=== PATIENT | female | born 1985 | race Asian ===

== ENCOUNTER 2017-09-05 00:08 | Outpatient (CLI) | payer BC ==
[~2017-09-05] VITALS: Ht 157.5 cm; Wt 66.8 kg
[2017-09-05 00:35] VITALS: BP 102/68; PULSE 107; TEMP 98.3
[2017-09-05] MEDS ORDERED: PRENATAL MVI (00:46)
[2017-09-05] MEDS ORDERED: ZANTAC 7575 MG PO (00:47)
[2017-09-05 01:30] VITALS: BP 100/66; PULSE 80
[2017-09-05 02:27] VITALS: BP 100/66; PULSE 80
== END 2017-09-05 02:50 | disposition home or self-care (01) ==
LOC: LDRO 00:08
DX: O62.9 Abnormality of forces of labor, unspecified (principal); Z3A.40 40 weeks gestation of pregnancy

== ENCOUNTER 2017-09-06 11:21 | Inpatient (IN) | payer OTHER, BC ==
[~2017-09-06] VITALS: Ht 157.5 cm; Wt 67.7 kg
[2017-09-06] VITALS (27 sets, daily range): BP systolic 89–119; BP diastolic 50–81; PULSE 64–122; TEMP 97.6–97.8
[~2017-09-06 11:21] MED LIST: PRENATAL MVI; ZANTAC 7575 MG PO
[2017-09-06 12:09] LABS: BASO % 0.4 % (0.0-2.0); EOS % 0.2 % (0-4.0); GRAN # 8.7 (1.4-6.5); GRAN % 78.8 % (42.2-75.2); HEMATOCRIT 41.6 % (37.0-47.0); HEMOGLOBIN 14.2 g/dl (12.5-16.0); LYMPH # 1.8 (1.2-3.4); LYMPH % 16.7 % (20.0-51.0); MEAN CELL VOLUME 89 fl (80.0-100.0); MEAN CORPUSCULAR HEMOGLOBIN 30 pg (27.0-31.0); MEAN CORPUSCULAR HGB CONC 34 g/dl (33.0-37.0); MEAN PLATELET VOLUME 10.1 fl (7.4-10.4); MONO # 0.4 (0.1-0.6); MONO % 3.4 % (1.7-9.3); PLATELET COUNT 242 K/mm3 (130-400); RED BLOOD COUNT 4.68 M/mm3 (4.10-5.30)
[2017-09-07 00:15] VITALS: BP 86/46; PULSE 109; TEMP 98.6
[2017-09-07 04:27] VITALS: BP 87/57; PULSE 92; TEMP 98.2
[2017-09-07 08:29] VITALS: BP 89/62; PULSE 96; TEMP 98.3
[2017-09-07] MEDS ORDERED: IBU800 M1 PO (08:39)
[2017-09-07 16:00] VITALS: BP 89/57; PULSE 88; TEMP 98
[2017-09-07 19:30] VITALS: BP 109/70; PULSE 79; TEMP 98
[2017-09-08 07:30] VITALS: BP 107/74; PULSE 86; TEMP 98
== END 2017-09-08 10:50 | disposition home or self-care (01) | DRG 989 ==
LOC: LDRO 11:21 → LDR 11:45 → OB 20:00
PROVIDERS: Student in an Organized Health Care Education/Training Program
PROC: 10D07Z6 Extraction of Products of Conception, Vacuum, Via Natural or Artificial Opening (ICD-10-PCS; principal; 2017-09-06)
PROC: 0UQK7ZZ Repair Hymen, Via Natural or Artificial Opening (ICD-10-PCS; 2017-09-06)
PROC: 0KQM0ZZ Repair Perineum Muscle, Open Approach (ICD-10-PCS; 2017-09-06)
DX: O48.0 Post-term pregnancy (principal); O76 Abnormality in fetal heart rate and rhythm complicating labor and delivery; O77.0 Labor and delivery complicated by meconium in amniotic fluid; O70.1 Second degree perineal laceration during delivery; O70.0 First degree perineal laceration during delivery; Z3A.40 40 weeks gestation of pregnancy; Z37.0 Single live birth
CPT/HCPCS: J2590; J7120